=== PATIENT | male | born 1975 | race Caucasian/White ===

== ENCOUNTER 2023-06-25 02:32 | Emergency (ER) | payer MEDICARE ==
[~2023-06-25] VITALS: Ht 175.3 cm; Wt 77.1 kg
[2023-06-25 03:53] VITALS: BP 127/69; TEMP 98.1
[2023-06-25] MEDS ORDERED: LIDOCAINE 1%-EPI 1:100,000 20 ML VIAL ONE (03:59)
[2023-06-25] MEDS ORDERED: TDAP [DIPH/PERTUSSIS/TET] 0.5 ML VIAL IM ONE (03:59)
[2023-06-25] MEDS: TDAP [DIPH/PERTUSSIS/TET] 0.5 ML VIAL IM ONE (04:00)
[2023-06-25] MEDS: LIDOCAINE 1%-EPI 1:100,000 50 ML VIAL IJ ONE (04:00)
[2023-06-25 04:59] VITALS: O2SAT 98
== END 2023-06-25 05:00 | disposition home or self-care (01) ==
LOC: ER 02:39
DX: S31.119A Laceration without foreign body of abdominal wall, unspecified quadrant without penetration into peritoneal cavity, initial encounter (principal); X58.XXXA Exposure to other specified factors, initial encounter; Y93.89 Activity, other specified; Y92.89 Other specified places as the place of occurrence of the external cause; Y99.8 Other external cause status
CPT/HCPCS: 99283; 12002; 90471; 90715; J3490 ×2